=== PATIENT | male | born 1965 | race Caucasian/White ===

== ENCOUNTER 2018-02-04 00:29 | Emergency (ER) | payer MEDICAID ==
[~2018-02-04] VITALS: Ht 182.9 cm; Wt 87.0 kg
[~2018-02-04 00:29] MED LIST: ALBU18HF2 IH; DIVA500T9 PO; FENO135C3 PO; FLUO20CA39 PO; KEN0.1O TP; LOSA100T15 PO; MONT10TA21 PO; NEBU-161; PRED10TA PO; QUET-1 PO; SPIIN IH; ZOC40T PO
[2018-02-04 02:03] LABS: BASOPHILS % (AUTO) 0.4 % (0-1); EOSINOPHILS # (AUTO) 0.2 X10'3 (0-0.9); EOSINOPHILS % (AUTO) 2.1 % (0-6); HEMATOCRIT 39.7 % (42.0-52.0); HEMOGLOBIN 13.8 g/dl (14.0-17.9); LYMPHOCYTES # (AUTO) 3.1 X10'3 (1.1-4.8); LYMPHOCYTES % (AUTO) 36.3 % (21-51); MEAN CORPUSCULAR HEMOGLOBIN 33.7 PG (27.0-31.0); MEAN CORPUSCULAR HGB CONC 34.8 % (33.0-36.5); MEAN CORPUSCULAR VOLUME 96.9 FL (78-98); MEAN PLATELET VOLUME 7.5 FL (7.4-10.4); MONOCYTES # (AUTO) 0.8 X10'3 (0-0.9); MONOCYTES % (AUTO) 9.4 % (2-12); NEUTROPHILS # (AUTO) 4.4 X10'3 (1.8-7.7); NEUTROPHILS % (AUTO) 51.8 % (42-75); PLATELET COUNT 289 X10'3 (140-440); RED CELL DISTRIBUTION WIDTH 12.4 % (11.5-14.5); WHITE BLOOD COUNT 8.5 X10'3 (4.5-11.0)
[2018-02-04] MEDS ORDERED: nicotine 7mg patch - 24hr TD ONE (02:05)
[2018-02-04 02:12] LABS: ALANINE AMINOTRANSFERASE 21 U/L (12-78); ALBUMIN 3.9 G/DL (3.4-5.0); ALBUMIN/GLOBULIN RATIO 1.2 (1.1-1.5); ALKALINE PHOSPHATASE 43 IU/L (46-116); ANION GAP 12 (8-16); ASPARTATE AMINO TRANSFERASE 17 U/L (10-37); BILIRUBIN,TOTAL 0.2 MG/DL (0.1-1.0); BLOOD UREA NITROGEN 6 MG/DL (7-18); BUN/CREATININE RATIO 5.7 (5.4-32.0); CALCIUM 8.3 MG/DL (8.5-10.1); CHLORIDE 102 MMOL/L (99-107); CREATININE 1.06 MG/DL (0.60-1.10); GLUCOSE 100 MG/DL (70-104); POTASSIUM 4.2 MMOL/L (3.5-5.1); SODIUM 138 MMOL/L (135-145); TOTAL CARBON DIOXIDE 23.7 MMOL/L (24-32); TOTAL PROTEIN 7.1 G/DL (6.4-8.2); eGFR 73 ML/MIN
[2018-02-04 02:21] LABS: ETHANOL 0.158 GM/DL (0.0-0.010)
[2018-02-04 02:27] LABS: URINE AMPHETAMINE SCREEN NEGATIVE (Neg); URINE BARBITUATE SCREEN NEGATIVE (Neg); URINE BENZODIAZEPINES SCREEN NEGATIVE (Neg); URINE CANNABINOID SCREEN NEGATIVE (Neg); URINE COCAINE SCREEN NEGATIVE (Neg); URINE METHADONE SCREEN NEGATIVE (Neg); URINE OPIATE SCREEN NEGATIVE (Neg); URINE PHENCYCLIDINE SCREEN NEGATIVE (Neg)
[2018-02-04] MEDS ORDERED: SPIR100T5 PO (02:50)
[2018-02-04] MEDS ORDERED: ESCI10TA54 PO (02:50)
[2018-02-04] MEDS ORDERED: ALB0.5UD IH (02:50)
[2018-02-04] MEDS ORDERED: VARE0.5T PO (02:50)
[2018-02-04] MEDS ORDERED: MEDR150V IM (02:50)
[2018-02-04] MEDS ORDERED: LORA10TA7 PO (02:50)
[2018-02-04] MEDS ORDERED: BUPR150T8 PO (02:50)
[2018-02-04] MEDS ORDERED: EST1T PO (02:50)
[2018-02-04] MEDS ORDERED: albuterol 2.5 MG/3 ML nebule NEB PRN (03:40)
[2018-02-04 05:04] LABS: VALPROATE 43.4 UG/ML (50-100)
[2018-02-04] MEDS ORDERED: losartan 25mg tablet PO SCH (08:00)
[2018-02-04] MEDS ORDERED: citalopram 20mg tablet PO SCH (08:00)
[2018-02-04] MEDS ORDERED: buPROPion 75mg tablet PO SCH (08:00)
[2018-02-04] MEDS ORDERED: triamcinolone acet 0.1% cream 15gm TP SCH (08:00)
[2018-02-04] MEDS ORDERED: nicotine 7mg patch - 24hr TD SCH (08:00)
[2018-02-04] MEDS ORDERED: estradiol 1mg tablet PO SCH (08:00)
[2018-02-04] MEDS ORDERED: loratadine 10mg tablet PO SCH (08:00)
[2018-02-04] MEDS ORDERED: spironolactone 50 MG tablet PO SCH (08:30)
[2018-02-04] MEDS ORDERED: divalproex sodium 500mg tablet.DR PO SCH ×2 (08:30→21:00)
[2018-02-04] MEDS: ipratropium 0.5 MG/2.5ML nebule IH SCH ×2 (09:36→16:00)
[2018-02-04 17:15] VITALS: BP 143/79
[2018-02-04] MEDS ORDERED: quetiapine 100mg tablet PO SCH (21:00)
== END 2018-02-04 17:18 | disposition home or self-care (01) ==
LOC: ER 00:29
DX: F19.10 Other psychoactive substance abuse, uncomplicated (principal); R45.851 Suicidal ideations; F31.9 Bipolar disorder, unspecified; F20.9 Schizophrenia, unspecified; I10 Essential (primary) hypertension; J45.909 Unspecified asthma, uncomplicated; F15.90 Other stimulant use, unspecified, uncomplicated; F14.90 Cocaine use, unspecified, uncomplicated; F17.200 Nicotine dependence, unspecified, uncomplicated; Z79.899 Other long term (current) drug therapy
CPT/HCPCS: 36415; 80053; 80164; 80305; 80320; 84443; 85025; 94640; 94760; 99285

== ENCOUNTER 2018-04-17 21:27 | Emergency (ER) | payer MEDICAID ==
[~2018-04-17] VITALS: Ht 188 cm; Wt 90.0 kg
[~2018-04-17 21:27] MED LIST changes: +ALB0.5UD IH; +BUPR150T8 PO; +ESCI10TA54 PO; +EST1T PO; -FENO135C3 PO; -FLUO20CA39 PO; +LORA10TA7 PO; -LOSA100T15 PO; +LOSA100T57 PO; +MEDR150V IM; -MONT10TA21 PO; -NEBU-161; -PRED10TA PO; +SPIR100T5 PO; +VARE0.5T PO; -ZOC40T PO
[2018-04-17] MEDS ORDERED: normal saline 1000ML IV soln IVB ONE ×2 (21:40→23:20)
[2018-04-17] MEDS ORDERED: ondansetron/PF 4mg/2ml inj IV ONE (21:40)
[2018-04-17 21:57] LABS: BASOPHILS % (AUTO) 0.3 % (0-1); EOSINOPHILS # (AUTO) 0.1 X10'3 (0-0.9); EOSINOPHILS % (AUTO) 0.6 % (0-6); HEMATOCRIT 41.9 % (42.0-52.0); HEMOGLOBIN 14.3 g/dl (14.0-17.9); LYMPHOCYTES # (AUTO) 2.6 X10'3 (1.1-4.8); LYMPHOCYTES % (AUTO) 17.9 % (21-51); MEAN CORPUSCULAR HEMOGLOBIN 32.9 PG (27.0-31.0); MEAN CORPUSCULAR HGB CONC 34.1 % (33.0-36.5); MEAN CORPUSCULAR VOLUME 96.5 FL (78-98); MEAN PLATELET VOLUME 7.5 FL (7.4-10.4); MONOCYTES % (AUTO) 6.7 % (2-12); NEUTROPHILS % (AUTO) 74.5 % (42-75); PLATELET COUNT 359 X10'3 (140-440); RED BLOOD COUNT 4.34 X10'6 (4.70-6.10); RED CELL DISTRIBUTION WIDTH 13.2 % (11.5-14.5); WHITE BLOOD COUNT 14.7 X10'3 (4.5-11.0)
[2018-04-17 22:08] LABS: ALANINE AMINOTRANSFERASE 28 U/L (12-78); ALBUMIN/GLOBULIN RATIO 1.2 (1.1-1.5); ALKALINE PHOSPHATASE 51 IU/L (46-116); ANION GAP 17 (8-16); ASPARTATE AMINO TRANSFERASE 20 U/L (10-37); BILIRUBIN,TOTAL 0.2 MG/DL (0.1-1.0); BLOOD UREA NITROGEN 12 MG/DL (7-18); BUN/CREATININE RATIO 11.7 (5.4-32.0); CALCIUM 8.5 MG/DL (8.5-10.1); CHLORIDE 98 MMOL/L (99-107); CREATININE 1.03 MG/DL (0.60-1.10); ETHANOL 0.222 GM/DL (0.0-0.010); GLUCOSE 116 MG/DL (70-104); LIPASE 176 U/L (73-393); MAGNESIUM 2.1 MG/DL (1.5-2.4); POTASSIUM 3.9 MMOL/L (3.5-5.1); SODIUM 136 MMOL/L (135-145); TOTAL CARBON DIOXIDE 21.5 MMOL/L (24-32); TOTAL PROTEIN 7.4 G/DL (6.4-8.2); eGFR 76 ML/MIN
[2018-04-17 23:20] VITALS: BP 152/89
[2018-04-18 00:27] LABS: URINE AMPHETAMINE SCREEN NEGATIVE (Neg); URINE BARBITUATE SCREEN NEGATIVE (Neg); URINE BENZODIAZEPINES SCREEN NEGATIVE (Neg); URINE CANNABINOID SCREEN NEGATIVE (Neg); URINE COCAINE SCREEN NEGATIVE (Neg); URINE METHADONE SCREEN NEGATIVE (Neg); URINE OPIATE SCREEN NEGATIVE (Neg); URINE PHENCYCLIDINE SCREEN NEGATIVE (Neg)
== END 2018-04-18 00:41 | disposition home or self-care (01) ==
LOC: ER 21:27
DX: F10.129 Alcohol abuse with intoxication, unspecified (principal); K29.20 Alcoholic gastritis without bleeding; R11.10 Vomiting, unspecified; F19.10 Other psychoactive substance abuse, uncomplicated; I10 Essential (primary) hypertension; F20.9 Schizophrenia, unspecified; F31.9 Bipolar disorder, unspecified; F15.10 Other stimulant abuse, uncomplicated; F14.10 Cocaine abuse, uncomplicated; J45.909 Unspecified asthma, uncomplicated; Z79.899 Other long term (current) drug therapy
CPT/HCPCS: 36415; 80053; 80305; 80320; 83690; 83735; 85025; 93005; 96361; 96374; 99284; J2405; J7030

== ENCOUNTER 2018-07-14 02:05 | Emergency (ER) | payer MEDICAID, OTHER ==
[~2018-07-14] VITALS: Ht 182.9 cm; Wt 94.5 kg
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
[2018-07-14 05:33] VITALS: BP 111/77
== END 2018-07-14 05:15 | disposition home or self-care (01) ==
LOC: ER 02:05 → EEVIPCON 02:05 → EDSEX 02:05 → ER 05:15
DX: T74.21XA Adult sexual abuse, confirmed, initial encounter (principal); I10 Essential (primary) hypertension; J45.909 Unspecified asthma, uncomplicated; F31.9 Bipolar disorder, unspecified; F20.9 Schizophrenia, unspecified; F15.90 Other stimulant use, unspecified, uncomplicated; F14.90 Cocaine use, unspecified, uncomplicated; Z79.899 Other long term (current) drug therapy
CPT/HCPCS: 99284